=== PATIENT | male | born 1985 | race Caucasian/White ===

== ENCOUNTER 2020-09-06 17:46 | Emergency (ER) | payer OTHER ==
[~2020-09-06] VITALS: Ht 182.9 cm; Wt 90.7 kg
== END 2020-09-06 19:16 | disposition home or self-care (01) ==
LOC: ED 17:46
PROC: 0JC Subcutaneous Tissue and Fascia, Extirpation (ICD-10-PCS; principal; 2020-09-06)
DX: S50.851A Superficial foreign body of right forearm, initial encounter (principal); W22.8XXA Striking against or struck by other objects, initial encounter; F17.200 Nicotine dependence, unspecified, uncomplicated
CPT/HCPCS: 10120; 99283-25